=== PATIENT | female | born 1960 | race Caucasian/White ===

== ENCOUNTER 2017-08-20 08:40 | Inpatient (IN) | payer MEDICAID ==
[2017-08-20 08:41] VITALS: BMI 29.2
--- NOTE | 2017-08-20 09:10 | C.PDOC ---
History Of Present Illness Patient is a 57 y/o F with hx of urinary retention, with vasques placed at [facility] [place] days ago for urinary retention, presenting with complaint of lack of drainage from vasques for 8 hours. Patient was seen by Vicki this morning who was referred to ED for urology evaluation. Time Seen by Provider: 08/20/17 08:57 Chief Complaint (Nursing): Female Genitourinary History Per: Patient History/Exam Limitations: no limitations Onset/Duration Of Symptoms: Hrs (8) Current Symptoms Are (Timing): Still Present Severity: Mild Additional History Per: Patient Past Medical History Reviewed: Historical Data, Nursing Documentation, Vital Signs Vital Signs: Last Vital Signs Temp 98.3 F 08/20/17 13:23 Pulse 86 08/20/17 13:23 Resp 18 08/20/17 13:23 BP 120/78 08/20/17 13:23 Pulse Ox 97 08/20/17 13:29 - Medical History PMH: Denies: Chronic Kidney Disease Family History: States: Unknown Family Hx - Social History Hx Alcohol Use: No Hx Substance Use: No Review Of Systems Constitutional: Negative for: Fever, Chills Cardiovascular: Negative for: Chest Pain, Palpitations Respiratory: Negative for: Shortness of Breath, SOB with Excertion, Wheezing Gastrointestinal: Negative for: Nausea, Vomiting, Abdominal Pain, Diarrhea, Constipation Genitourinary: Positive for: Other (Urinary retention). Negative for: Dysuria, Frequency, Hematuria, Vaginal Discharge, Vaginal Bleeding Skin: Negative for: Rash Neurological: Negative for: Weakness, Numbness Psych: Negative for: Anxiety Physical Exam - Physical Exam Appears: Non-toxic, No Acute Distress Skin: Warm, Dry Head: Atraumatic, Normacephalic Eye(s): bilateral: Normal Inspection, PERRL, EOMI Neck: Supple Chest: Symmetrical Cardiovascular: Rhythm Regular, No Murmur Respiratory: Normal Breath Sounds, No Rales, No Rhonchi, No Wheezing Gastrointestinal/Abdominal: Soft, No Tenderness Back: No CVA Tenderness Pelvic: Other (Vasques in place) Extremity: Normal ROM (x4) Neurological/Psych: Oriented x3 ED Course And Treatment - Laboratory Results Result Diagrams: 08/20/17 09:57 08/20/17 09:57 O2 Sat by Pulse Oximetry: 97 (RA) Pulse Ox Interpretation: Normal Medical Decision Making Medical Decision Making: Vasques replaced. Scant output. P:labs and ua. P:renal and bladder ultrasound. Vasques put out 100cc urine and patient feeling better 11:40Am Creatinine WNL. Normal wbc. UA negative for infection and ucx sent. Bladder ultrasound shows "No hydronephrosis, obstructing calculus, or renal cyst identified. Incidental note is made of echogenic hepatic parenchyma. Echogenic liver may be seen in setting of hepatic parenchymal disease or fatty infiltration. Vasques catheter within a decompressed urinary bladder." Dr. Taina Mota. evaluated the patient at bedside and will admit the patient for urinary retention with urology consult Disposition - Disposition Disposition: HOSPITALIZED Disposition Time: 13:25 Condition: FAIR - Clinical Impression Clinical Impression: Urinary retention - Scribe Statement The provider has reviewed the documentation as recorded by the Chet lopez Provider Attestation: All medical record entries made by the Madisonibcharity were at my direction and personally dictated by me. I have reviewed the chart and agree that the record accurately reflects my personal performance of the history, physical exam, medical decision making, and the department course for this patient. I have also personally directed, reviewed, and agree with the discharge instructions and disposition.
[2017-08-20 10:09] LABS: RBC URINE 4 /hpf (0-3); URINE BILIRUBIN NEGATIVE (NEGATIVE); URINE BLOOD 1+ (NEGATIVE); URINE COLOR Colorless (YELLOW); URINE GLUCOSE (UA) NORMAL (Normal); URINE HYALINE CAST 0-2 /lpf (0-2); URINE KETONE NEGATIVE (NEGATIVE); URINE LEUKOCYTE ESTERASE NEG Leu/uL (Negative); URINE PROTEIN NEGATIVE (NEGATIVE); URINE UROBILINOGEN NORMAL mg/dL (0.2-1.0); WBC URINE 2 /hpf (0-5)
[2017-08-20 10:12] LABS: CHLORIDE 103 mmol/L (98-107); SODIUM 135 mmol/L (132-148)
[2017-08-20 10:13] LABS: POTASSIUM 4.4 mmol/L (3.6-5.2)
[2017-08-20 10:15] LABS: ALB/GLOB RATIO 0.9 (1.0-2.1); ALKALINE PHOSPHATASE 83 U/L (38-126); ALT/SGPT 43 U/L (9-52); AST/SGOT 29 U/L (14-36); BASO # 0.1 K/uL (0.0-0.2); BASO % 0.8 % (0.0-2.0); BILIRUBIN,TOTAL 0.4 mg/dL (0.2-1.3); BLOOD UREA NITROGEN 9 mg/dL (7-17); CARBON DIOXIDE 22 mmol/L (22-30); EOS # 0.2 K/uL (0.0-0.7); EOS % 1.9 % (0.0-4.0); GFR AFRICAN-AMERICAN > 60; GLUCOSE,RANDOM 82 mg/dL (65-105); HEMATOCRIT 36.1 % (34.0-47.0); LYMPH # 1.3 K/uL (1.0-4.3); LYMPH % 15.9 % (20.0-40.0); MEAN CELL VOLUME 82.1 fL (81.0-99.0); MEAN CORPUSCULAR HEMOGLOBIN 26.7 pg (27.0-31.0); MEAN CORPUSCULAR HGB CONC 32.6 g/dL (33.0-37.0); MEAN PLATELET VOLUME 7.7 fL (7.2-11.7); MONO # 0.8 K/uL (0.0-0.8); MONO % 9.3 % (0.0-10.0); RED CELL DISTRIBUTION WIDTH 14.6 % (11.5-14.5); TOTAL PROTEIN 8.3 g/dL (6.3-8.3); WHITE BLOOD COUNT 8.2 K/uL (4.8-10.8)
[2017-08-20 10:16] LABS: CALCIUM 9.5 mg/dl (8.6-10.4)
[2017-08-20] MEDS ORDERED: Sodium Chloride 0.9% 1,000 ML IV ONE (10:16)
[2017-08-20] MEDS ORDERED: Sodium Chloride 0.9% 1,000 ML ONE (10:57)
--- NOTE | 2017-08-20 11:34 | US ---
PROCEDURE: Ultrasound of the Kidneys HISTORY: urinary retention COMPARISON: None available. TECHNIQUE: Sonogram of the kidneys. FINDINGS: RIGHT KIDNEY: Measures: 10.3 x 4.6 x 4.9 cm. No obstructing calculus, hydronephrosis, or renal cyst identified. LEFT KIDNEY: Measures: 10.5 x 4.3 x 4.4 cm. No obstructing calculus, hydronephrosis, or renal cyst identified. OTHER FINDINGS: Incidental note is made of echogenic hepatic parenchyma. Echogenic liver may be seen in setting of hepatic parenchymal disease or fatty infiltration. Stewart catheter within a decompressed urinary bladder. IMPRESSION: No hydronephrosis, obstructing calculus, or renal cyst identified. Incidental note is made of echogenic hepatic parenchyma. Echogenic liver may be seen in setting of hepatic parenchymal disease or fatty infiltration. Stewart catheter within a decompressed urinary bladder.
--- NOTE | 2017-08-20 15:53 | CP.PCM.HP ---
History of Present Illness - History of Present Illness History of Present Illness: 57-year-old female with PMHurinary retention and Stewart's catheter in situ presented for C/Olack of drainage from the catheter for 8 hours. No C/Oburning micturition, fever, chills, vomiting, abdominal pain. Past Patient History - Past Medical History & Family History Past Medical History?: Yes - Past Social History Smoking Status: Never Smoked - CARDIAC Hx Cardiac Disorders: No - PULMONARY Hx Respiratory Disorders: No - NEUROLOGICAL Hx Neurological Disorder: No - HEENT Hx HEENT Problems: No - RENAL Hx Chronic Kidney Disease: No - ENDOCRINE/METABOLIC Hx Endocrine Disorders: No - HEMATOLOGICAL/ONCOLOGICAL Hx Blood Disorders: Yes Hx Cancer: Yes (RIGHT BREAST) - INTEGUMENTARY Hx Dermatological Problems: No - MUSCULOSKELETAL/RHEUMATOLOGICAL Hx Musculoskeletal Disorders: No - GASTROINTESTINAL Hx Gastrointestinal Disorders: No - GENITOURINARY/GYNECOLOGICAL Hx Genitourinary Disorders: No - PSYCHIATRIC Hx Substance Use: No - SURGICAL HISTORY Hx Surgeries: Yes (RIGHT BREAST LUMPECTOMY FOR CA) Other/Comment: RIGHT BREAST LUMPECTOMY 11/12/15 - ANESTHESIA Hx Anesthesia: Yes Hx Anesthesia Reactions: No Hx Malignant Hyperthermia: No Meds Allergies/Adverse Reactions: Allergies Allergy/AdvReac Type Severity Reaction Status Date / Time No Known Allergies Allergy Verified 08/20/17 08:52 Physical Exam - Constitutional Appears: Well - Head Exam Head Exam: ATRAUMATIC, NORMAL INSPECTION, NORMOCEPHALIC - Eye Exam Eye Exam: EOMI, Normal appearance, PERRL Pupil Exam: NORMAL ACCOMODATION, PERRL - ENT Exam ENT Exam: Mucous Membranes Moist, Normal Exam - Neck Exam Neck exam: Positive for: Normal Inspection - Respiratory Exam Respiratory Exam: Decreased Breath Sounds - Cardiovascular Exam Cardiovascular Exam: REGULAR RHYTHM, +S1, +S2 - GI/Abdominal Exam GI & Abdominal Exam: Diminished Bowel Sounds, Soft - Rectal Exam Rectal Exam: Deferred Results - Vital Signs Recent Vital Signs: Last Vital Signs Temp 98.3 F 08/20/17 15:37 Pulse 79 08/20/17 15:37 Resp 20 08/20/17 15:37 BP 106/65 08/20/17 15:37 Pulse Ox 95 08/20/17 15:37 - Labs Result Diagrams: 08/22/17 07:37 08/22/17 07:37 Labs: Laboratory Results - last 24 hr 08/20/17 08/20/17 08/20/17 09:57 09:57 09:57 WBC 8.2 RBC 4.39 Hgb 11.8 Hct 36.1 MCV 82.1 MCH 26.7 L MCHC 32.6 L RDW 14.6 H Plt Count 318 MPV 7.7 Neut % (Auto) 72.1 Lymph % (Auto) 15.9 L [place] % (Auto) 9.3 Eos % (Auto) 1.9 Baso % (Auto) 0.8 Neut # 5.9 Lymph # 1.3 [place] # 0.8 Eos # 0.2 Baso # 0.1 Sodium 135 Potassium 4.4 Chloride 103 Carbon Dioxide 22 Anion Gap 14 BUN 9 Creatinine 0.5 L Est GFR ( Amer) > 60 Est GFR (Non-Af Amer) > 60 Random Glucose 82 Calcium 9.5 Total Bilirubin 0.4 AST 29 ALT 43 Alkaline Phosphatase 83 Total Protein 8.3 Albumin 4.0 Globulin 4.3 H Albumin/Globulin Ratio 0.9 L Urine Color Colorless Urine Clarity Clear Urine pH 7.0 Ur Specific [place] 1.003 Urine Protein Negative Urine Glucose (UA) Normal Urine Ketones Negative Urine Blood 1+ H Urine Nitrate Negative Urine Bilirubin Negative Urine Urobilinogen Normal Ur Leukocyte Esterase Neg Urine WBC (Auto) 2 Urine RBC (Auto) 4 H Ur Squamous Epith Cells 3 Hyaline Casts 0-2
[2017-08-20] MEDS: Ciprofloxacin 400mg/200ml D5W 400 MG/200 ML BAG IVPB SCH (17:00)
--- NOTE | 2017-08-20 17:09 | CP.PCM.CON ---
Past Patient History - Past Medical History & Family History Past Medical History?: Yes - Past Social History Smoking Status: Never Smoked - CARDIAC Hx Cardiac Disorders: No - PULMONARY Hx Respiratory Disorders: No - NEUROLOGICAL Hx Neurological Disorder: No - HEENT Hx HEENT Problems: No - RENAL Hx Chronic Kidney Disease: No - ENDOCRINE/METABOLIC Hx Endocrine Disorders: No - HEMATOLOGICAL/ONCOLOGICAL Hx Blood Disorders: Yes Hx Cancer: Yes (RIGHT BREAST) - INTEGUMENTARY Hx Dermatological Problems: No - MUSCULOSKELETAL/RHEUMATOLOGICAL Hx Musculoskeletal Disorders: No - GASTROINTESTINAL Hx Gastrointestinal Disorders: No - GENITOURINARY/GYNECOLOGICAL Hx Genitourinary Disorders: No - PSYCHIATRIC Hx Substance Use: No - SURGICAL HISTORY Hx Surgeries: Yes (RIGHT BREAST LUMPECTOMY FOR CA) Other/Comment: RIGHT BREAST LUMPECTOMY 11/12/15 - ANESTHESIA Hx Anesthesia: Yes Hx Anesthesia Reactions: No Hx Malignant Hyperthermia: No Meds Allergies/Adverse Reactions: Allergies Allergy/AdvReac Type Severity Reaction Status Date / Time No Known Allergies Allergy Verified 08/20/17 08:52 - Medications Medications: Current Medications Ciprofloxacin (Cipro 400mg/200ml Dsw) 400 mg in 200 mls @ 133 mls/hr IVPB Q12H [facility] Pantoprazole Sodium (Protonix Ec Tab) 40 mg PO DAILY [facility] Results - Vital Signs Recent Vital Signs: Last Vital Signs Temp 98.3 F 08/20/17 15:37 Pulse 79 08/20/17 15:37 Resp 20 08/20/17 15:37 BP 106/65 08/20/17 15:37 Pulse Ox 95 08/20/17 15:37 - Labs Result Diagrams: 08/20/17 09:57 08/20/17 09:57 Labs: Laboratory Results - last 24 hr 08/20/17 08/20/17 08/20/17 09:57 09:57 09:57 WBC 8.2 RBC 4.39 Hgb 11.8 Hct 36.1 MCV 82.1 MCH 26.7 L MCHC 32.6 L RDW 14.6 H Plt Count 318 MPV 7.7 Neut % (Auto) 72.1 Lymph % (Auto) 15.9 L [place] % (Auto) 9.3 Eos % (Auto) 1.9 Baso % (Auto) 0.8 Neut # 5.9 Lymph # 1.3 [place] # 0.8 Eos # 0.2 Baso # 0.1 Sodium 135 Potassium 4.4 Chloride 103 Carbon Dioxide 22 Anion Gap 14 BUN 9 Creatinine 0.5 L Est GFR ( Amer) > 60 Est GFR (Non-Af Amer) > 60 Random Glucose 82 Calcium 9.5 Total Bilirubin 0.4 AST 29 ALT 43 Alkaline Phosphatase 83 Total Protein 8.3 Albumin 4.0 Globulin 4.3 H Albumin/Globulin Ratio 0.9 L Urine Color Colorless Urine Clarity Clear Urine pH 7.0 Ur Specific [place] 1.003 Urine Protein Negative Urine Glucose (UA) Normal Urine Ketones Negative Urine Blood 1+ H Urine Nitrate Negative Urine Bilirubin Negative Urine Urobilinogen Normal Ur Leukocyte Esterase Neg Urine WBC (Auto) 2 Urine RBC (Auto) 4 H Ur Squamous Epith Cells 3 Hyaline Casts 0-2
[2017-08-21] MEDS: Ciprofloxacin 400mg/200ml D5W 400 MG/200 ML BAG IVPB SCH ×2 (04:10→16:49)
[2017-08-21] MEDS ORDERED: Enoxaparin 40 mg Syringe SC SCH (10:00)
[2017-08-21] MEDS: Pantoprazole 40 mg EC Tab PO SCH (10:02)
--- NOTE | 2017-08-21 10:44 | CP.PCM.CON ---
History of Present Illness - History of Present Illness History of Present Illness: CC: urinary retention Full note to be dictated Imp: urinary retention Hx of Breast Ca Past Patient History - Past Medical History & Family History Past Medical History?: Yes - Past Social History Smoking Status: Never Smoked - CARDIAC Hx Cardiac Disorders: No - PULMONARY Hx Respiratory Disorders: No - NEUROLOGICAL Hx Neurological Disorder: No - HEENT Hx HEENT Problems: No - RENAL Hx Chronic Kidney Disease: No - ENDOCRINE/METABOLIC Hx Endocrine Disorders: No - HEMATOLOGICAL/ONCOLOGICAL Hx Blood Disorders: Yes Hx Cancer: Yes (RIGHT BREAST) - INTEGUMENTARY Hx Dermatological Problems: No - MUSCULOSKELETAL/RHEUMATOLOGICAL Hx Musculoskeletal Disorders: No - GASTROINTESTINAL Hx Gastrointestinal Disorders: No - GENITOURINARY/GYNECOLOGICAL Hx Genitourinary Disorders: No - PSYCHIATRIC Hx Substance Use: No - SURGICAL HISTORY Hx Surgeries: Yes (RIGHT BREAST LUMPECTOMY FOR CA) Other/Comment: RIGHT BREAST LUMPECTOMY 11/12/15 - ANESTHESIA Hx Anesthesia: Yes Hx Anesthesia Reactions: No Hx Malignant Hyperthermia: No Meds Allergies/Adverse Reactions: Allergies Allergy/AdvReac Type Severity Reaction Status Date / Time No Known Allergies Allergy Verified 08/20/17 08:52 - Medications Medications: Current Medications Enoxaparin Sodium (Lovenox) [address] [facility] Last Admin: 08/21/17 10:02 Dose: 40 mg Ciprofloxacin (Cipro 400mg/200ml Dsw) 400 mg in 200 mls @ 133 mls/hr IVPB Q12H [facility] Last Admin: 08/21/17 04:10 Dose: 133 mls/hr Pantoprazole Sodium (Protonix Ec Tab) [address] [facility] Last Admin: 08/21/17 10:02 Dose: 40 mg Tamoxifen Citrate (Nolvadex) [address] [facility] Last Admin: 08/21/17 10:03 Dose: 20 mg Results - Vital Signs Recent Vital Signs: Last Vital Signs Temp 98.1 F 08/21/17 08:00 Pulse 80 08/21/17 08:00 Resp 20 08/21/17 08:00 BP 125/77 08/21/17 08:00 Pulse Ox 96 08/21/17 08:00 - Labs Result Diagrams: 08/20/17 09:57 08/20/17 09:57 Assessment & Plan - Date & Time Date: 08/21/17 Time: 10:44
--- NOTE | 2017-08-21 18:39 | CP.PCM.PN ---
Subjective - Date & Time of Evaluation Date of Evaluation: 08/21/17 Time of Evaluation: 09:40 - Subjective Subjective: clinically same Objective - Vital Signs/Intake and Output Vital Signs (last 24 hours): Temp Pulse Resp BP Pulse Ox 98.4 F 94 H 20 126/77 96 08/21/17 16:00 08/21/17 16:00 08/21/17 16:00 08/21/17 16:00 08/21/17 16:00 Intake and Output: 08/21/17 08/21/17 06:59 18:59 Intake Total 100 Output Total 1300 Balance -1200 - Medications Medications: Current Medications Enoxaparin Sodium (Lovenox) 40 mg SC DAILY [facility] Last Admin: 08/21/17 10:02 Dose: 40 mg Ciprofloxacin (Cipro 400mg/200ml Dsw) 400 mg in 200 mls @ 133 mls/hr IVPB Q12H [facility] Last Admin: 08/21/17 16:49 Dose: 133 mls/hr Pantoprazole Sodium (Protonix Ec Tab) 40 mg PO DAILY [facility] Last Admin: 08/21/17 10:02 Dose: 40 mg Tamoxifen Citrate (Nolvadex) 20 mg PO DAILY [facility] Last Admin: 08/21/17 10:03 Dose: 20 mg - Labs Labs: 08/20/17 09:57 08/20/17 09:57 - Constitutional Appears: Well - Head Exam Head Exam: ATRAUMATIC, NORMAL INSPECTION, NORMOCEPHALIC - Eye Exam Eye Exam: EOMI, Normal appearance, PERRL Pupil Exam: NORMAL ACCOMODATION, PERRL - ENT Exam ENT Exam: Mucous Membranes Moist, Normal Exam - Neck Exam Neck Exam: Full ROM, Normal Inspection. absent: Lymphadenopathy - Respiratory Exam Respiratory Exam: Decreased Breath Sounds - Cardiovascular Exam Cardiovascular Exam: REGULAR RHYTHM, +S1, +S2 - GI/Abdominal Exam GI & Abdominal Exam: Soft, Diminished Bowel Sounds - Rectal Exam Rectal Exam: Deferred Assessment and Plan (1) Urinary retention Status: Acute - Assessment and Plan (Free Text) Plan: Patient examined. Patient better. Continue ciprofloxacin. Continue supportive care.
[2017-08-22] MEDS: Ciprofloxacin 400mg/200ml D5W 400 MG/200 ML BAG IVPB SCH ×2 (03:39→17:48)
[2017-08-22 08:01] LABS: BASO % 0.8 % (0.0-2.0); EOS # 0.2 K/uL (0.0-0.7); EOS % 3.9 % (0.0-4.0); HEMATOCRIT 35.9 % (34.0-47.0); LYMPH # 1.4 K/uL (1.0-4.3); LYMPH % 22.4 % (20.0-40.0); MEAN CELL VOLUME 82.6 fL (81.0-99.0); MEAN CORPUSCULAR HEMOGLOBIN 27.2 pg (27.0-31.0); MEAN PLATELET VOLUME 7.9 fL (7.2-11.7); MONO # 0.7 K/uL (0.0-0.8); MONO % 11.3 % (0.0-10.0); NRBC % 0.1 % (0.0-2.0); RED CELL DISTRIBUTION WIDTH 14.4 % (11.5-14.5); WHITE BLOOD COUNT 6.4 K/uL (4.8-10.8)
[2017-08-22 08:38] LABS: CHLORIDE 105 mmol/L (98-107)
[2017-08-22 08:39] LABS: SODIUM 136 mmol/L (132-148)
[2017-08-22 08:41] LABS: ALB/GLOB RATIO 0.8 (1.0-2.1); ALKALINE PHOSPHATASE 61 U/L (38-126); AST/SGOT 25 U/L (14-36); BILIRUBIN,TOTAL 0.5 mg/dL (0.2-1.3); CARBON DIOXIDE 22 mmol/L (22-30); GFR AFRICAN-AMERICAN > 60; TOTAL PROTEIN 7.6 g/dL (6.3-8.3)
[2017-08-22 08:42] LABS: ALT/SGPT 37 U/L (9-52); BLOOD UREA NITROGEN 9 mg/dL (7-17); GLUCOSE,RANDOM 80 mg/dL (65-105)
[2017-08-22] MEDS: Pantoprazole 40 mg EC Tab PO SCH (09:59)
[2017-08-22] MEDS ORDERED: Midazolam 2 MG/2 ML VIAL ONE (15:37)
[2017-08-22] MEDS ORDERED: Propofol 10 mg/ml Inj (20 ML) ONE (15:37)
[2017-08-22] MEDS ORDERED: Iohexol 240 200 ML IJ ONE (16:10)
[2017-08-22] MEDS ORDERED: Iohexol 240 (50 ml) ONE (16:10)
[2017-08-22] MEDS ORDERED: HYDROmorphone 0.5 mg/0.5 ml ISec IVP PRN (16:28)
--- NOTE | 2017-08-22 16:31 | PCM.SURG1 ---
Surgeon's Initial Post Op Note - Surgeon's Notes Surgeon: neris meade Motor Polarizer: none Type of Anesthesia: IV Sedation Pre-Operative Diagnosis: uti. retention Operative Findings: cystitis. bladder decensus. R hydronephrosis. pelvic mass Post-Operative Diagnosis: same Operation Performed: cystogram. cystoscopy. bilat rtg pyelogram Specimen/Specimens Removed: none Estimated Blood Loss: EBL {In ML}: 0 Blood Products Given: N/A Drains Used: No Drains Date of Surgery/Procedure: 08/22/17 Time of Surgery/Procedure: 16:31
[2017-08-22] MEDS ORDERED: Lactated Ringer's 1,000 ML IV ONE ×3 (16:35)
--- NOTE | 2017-08-22 17:17 | RAD ---
PROCEDURE: Intraoperative Fluoroscopy. HISTORY: RIGHT HYDRONEPHROSIS/URINARY RETENTION FINDINGS: Fluoroscopic assistance was provided for bilateral retrograde Total fluoroscopic time (continuous mode) utilized during the procedure: 51.9 seconds.
[2017-08-22 18:14] VITALS: RESP 20
--- NOTE | 2017-08-22 19:54 | CP.PCM.PN ---
Subjective - Date & Time of Evaluation Date of Evaluation: 08/22/17 Time of Evaluation: 10:00 - Subjective Subjective: clinically same Objective - Vital Signs/Intake and Output Vital Signs (last 24 hours): Temp Pulse Resp BP Pulse Ox 98.1 F 75 20 129/82 95 08/22/17 18:00 08/22/17 18:00 08/22/17 18:00 08/22/17 18:00 08/22/17 18:00 Intake and Output: 08/22/17 08/23/17 18:59 06:59 Intake Total 200 Output Total 600 Balance -400 - Medications Medications: Current Medications Enoxaparin Sodium (Lovenox) 40 mg SC DAILY [facility] Last Admin: 08/21/17 10:02 Dose: 40 mg Ciprofloxacin (Cipro 400mg/200ml Dsw) 400 mg in 200 mls @ 133 mls/hr IVPB Q12H [facility] Last Admin: 08/22/17 17:48 Dose: 133 mls/hr Pantoprazole Sodium (Protonix Ec Tab) 40 mg PO DAILY [facility] Last Admin: 08/22/17 09:59 Dose: 40 mg Tamoxifen Citrate (Nolvadex) 20 mg PO DAILY [facility] Last Admin: 08/22/17 09:59 Dose: 20 mg - Labs Labs: 08/22/17 07:37 08/22/17 07:37 - Constitutional Appears: Well - Head Exam Head Exam: ATRAUMATIC, NORMAL INSPECTION, NORMOCEPHALIC - Eye Exam Eye Exam: EOMI, Normal appearance, PERRL Pupil Exam: NORMAL ACCOMODATION, PERRL - ENT Exam ENT Exam: Mucous Membranes Moist, Normal Exam - Neck Exam Neck Exam: Full ROM, Normal Inspection. absent: Lymphadenopathy - Respiratory Exam Respiratory Exam: Decreased Breath Sounds - Cardiovascular Exam Cardiovascular Exam: REGULAR RHYTHM, +S1, +S2 - GI/Abdominal Exam GI & Abdominal Exam: Soft, Diminished Bowel Sounds - Rectal Exam Rectal Exam: Deferred Assessment and Plan (1) Urinary retention Status: Acute - Assessment and Plan (Free Text) Plan: Patient examined. Patient better. Continue ciprofloxacin. Continue supportive care.
[2017-08-23] MEDS: Ciprofloxacin 400mg/200ml D5W 400 MG/200 ML BAG IVPB SCH ×2 (04:15→16:45)
[2017-08-23] MEDS: Pantoprazole 40 mg EC Tab PO SCH (10:11)
[2017-08-23 15:41] VITALS: BP 118/71; PULSE 83; TEMP 98.2; O2SAT 96
--- NOTE | 2017-08-23 18:42 | CP.PCM.PN ---
Subjective - Date & Time of Evaluation Date of Evaluation: 08/23/17 Time of Evaluation: 10:00 - Subjective Subjective: clinically same Objective - Vital Signs/Intake and Output Vital Signs (last 24 hours): Temp Pulse Resp BP Pulse Ox 98.2 F 83 20 118/71 96 08/23/17 15:38 08/23/17 15:38 08/23/17 15:38 08/23/17 15:38 08/23/17 15:38 Intake and Output: 08/23/17 08/23/17 06:59 18:59 Intake Total 400 Output Total 350 300 Balance -350 100 - Medications Medications: Current Medications Enoxaparin Sodium (Lovenox) 40 mg SC DAILY [facility] Last Admin: 08/21/17 10:02 Dose: 40 mg Ciprofloxacin (Cipro 400mg/200ml Dsw) 400 mg in 200 mls @ 133 mls/hr IVPB Q12H [facility] Last Admin: 08/23/17 16:45 Dose: Not Given Pantoprazole Sodium (Protonix Ec Tab) 40 mg PO DAILY [facility] Last Admin: 08/23/17 10:11 Dose: 40 mg Tamoxifen Citrate (Nolvadex) 20 mg PO DAILY [facility] Last Admin: 08/23/17 10:11 Dose: 20 mg - Labs Labs: 08/22/17 07:37 08/22/17 07:37 Assessment and Plan (1) Urinary retention Status: Acute - Assessment and Plan (Free Text) Plan: Patient examined. Patient better. Continue ciprofloxacin. Continue supportive care.
[2017-08-23] MEDS ORDERED: Influenza Vaccine 60 mcg/0.5 mL SYR (4YR UP) IM ONE (18:51)
[2017-08-23] MEDS ORDERED: Pneumococcal 23-Valent Vaccine IM ONE (18:51)
--- NOTE | 2017-08-26 17:16 | CON ---
UROLOGY CONSULTATION Urology consultation is requested by Dr. Taina Mota. Urology consultation is filled by Dr. Deisy Gibbons. REASON FOR CONSULTATION: Urinary retention, urinary tract infection. HISTORY OF PRESENT ILLNESS: The patient is 57-year-old female with urinary retention. The patient has had recurrent urinary retention. The patient had previous Stewart catheter inserted for retention. She had trial of voiding. Subsequent developed urinary retention again. The patient was found to have urinary tract infection. There is been no recent fever or rigors. No history of urolithiasis. No flank pain. The patient reports she usually urinates with fair urinary stream. She has had good control of urination. PAST MEDICAL HISTORY: Significant for breast carcinoma. The patient has had previous treatment for breast carcinoma. The patient has history of previous labor and delivery. No chest pain. No shortness of breath. MEDICATIONS: Reviewed. LABORATORY DATA: Reviewed. PHYSICAL EXAMINATION: GENERAL: The patient is well-developed, well-nourished female, appearing her stated age. The patient is awake and alert. ABDOMEN: Soft, nontender, nondistended. No mass or organomegaly. BACK: No CVA tenderness. IMPRESSION: 1. Urinary retention and history of urinary tract infection. 2. 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 RECOMMENDATIONS AND PLAN: Stewart catheter indwelling. Continue antibiotic therapy. I discussed with the patient and her daughter regarding the findings and the options of therapy. I will discuss with the attending physician regarding possible further management including diagnostic and therapeutic intervention. Thank you for recommending the patient for urology consultation. Deisy Gibbons MD cc: MD Deisy Coley MD
--- NOTE | 2017-08-27 00:19 | OP ---
PROCEDURE DATE: 08/22/2017 PREOPERATIVE DIAGNOSES: 1. Urinary retention. 2. Urinary tract infection. POSTOPERATIVE DIAGNOSES: 1. Urinary retention. 2. Urinary tract infection. 3. Cystitis. 4. Pelvic mass. 5. Right hydronephrosis. PROCEDURE: 1. Cystogram. 2. Cystoscopy. 3. Bilateral retrograde pyelogram. 4. Exam under anesthesia. OPERATING SURGEON: Deisy Gibbons MD DESCRIPTION OF PROCEDURE: The patient was in supine position. Cystogram was performed via the indwelling Stewart catheter. Iodinated contrast was instilled. Radiographs were obtained in PA and oblique views. The cystogram demonstrated an abnormal bladder contour. There was some bilobar nature to the bladder. There were no intrinsic or extrinsic filling defects within the bladder. There was a calcified rounded calcified mass on the right side of the pelvis adjacent to the bladder. There was no vesicoureteral reflux. There were no intrinsic filling defects within the bladder. The bladder was then drained. The patient was placed in lithotomy position. Genitalia prepped and draped sterilely. Anesthesia was applied by the anesthesiologist. A 22-Samoan cystoscope sheath was introduced with obturator. Urethra and bladder were inspected with 30-degree and subsequently with 70 degree lenses. FINDINGS: There was noted to be moderate diffuse cystitis. There were no focal lesions within the bladder. There was no bladder tumor identified. There was no bladder stone identified. There was some decreased visibility due to the inflammation within the bladder. The ureteral orifices were identified. There was moderate distention of the bladder. The orifices were somewhat posteriorly located. Retrograde ureteral pyelogram was performed. Iodinated contrast was instilled via cone tip catheter into each ureteral orifice. Left retrograde pyelogram demonstrated no filling defect or obstruction within the ureters or collecting systems. The right retrograde pyelogram demonstrated no filling defect within the ureter. There was no point of obstruction. However, there was [id number] right hydronephrosis. The ureter was mildly dilated as well down to its distal portion. There was good drainage from the ureter on the post drainage films. There was incomplete drainage from the right kidney on the post drainage film. There was good drainage from the left kidney. The bladder was reinspected by 70-degree confirmed the above findings. The bladder was then drained. Cystoscope sheath removed. Bimanual examination/exam under anesthesia was performed. There was a mobile right-sided pelvic mass. The mass was mobile and smooth. ovarian or urine abnormality. The patient was returned to supine position. The patient tolerated the procedure without complication. Deisy Gibbons MD cc: MD Tamie Chen MD
== END 2017-08-23 19:40 | disposition home or self-care (01) | DRG 320 ==
LOC: C.ER 08:40 → C.9E 13:24 → C.5S 15:02
PROVIDERS: ADMIT Internal Medicine Nephrology; ATTEND Internal Medicine Nephrology
PROC: BT14ZZZ Fluoroscopy of Kidneys, Ureters and Bladder (ICD-10-PCS; principal; 2017-08-20)
DX: N30.90 Cystitis, unspecified without hematuria (principal); N13.30 Unspecified hydronephrosis; N32.89 Other specified disorders of bladder; R31.9 Hematuria, unspecified; Z87.440 Personal history of urinary (tract) infections; Z85.3 Personal history of malignant neoplasm of breast